=== PATIENT | male | born 1960 | race African-American/Black ===

== ENCOUNTER 2016-11-15 13:49 | Emergency (ER) | payer MEDICARE, OTHER ==
[2016-11-15 11:17] LABS: BASOPHILS 0.3 %; BASOPHILS ABSOLUTE 0.01 10/3/uL (0.0-0.16); EOSINOPHILS 0.3 %; EOSINOPHILS ABSOLUTE 0.01 10/3/uL (0.0-0.53); ER CBC TAT 0 Hrs 09 Mins; HEMATOCRIT 41.7 % (40.0-51.0); HEMOGLOBIN 14.3 g/dL (13.6-17.8); LYMPHOCYTES 34.5 %; LYMPHOCYTES ABSOLUTE 1.13 10/3/uL (0.67-4.30); MEAN CORPUS HGB CONC 34.3 g/dL (32.0-36.0); MEAN CORPUSCULAR HEMOGLOB 28.9 pg (26.0-34.0); MEAN CORPUSCULAR VOLUME 84.2 fL (80-100); MEAN PLATELET VOLUME 9.9 fL (9.2-13.0); MONOCYTES 10.1 %; MONOCYTES ABSOLUTE 0.33 10/3/uL (0.21-1.20); NEUTROPHILS 54.8 %; PLATELET COUNT 192 10/3/uL (150-400); RBC DISTRIBUTION WIDTH 13.6 % (12.0-16.0); RED CELL COUNT 4.95 10/6/uL (4.7-6.1); WHITE BLOOD CELLS 3.3 10/3/uL (4.5-10.5)
[2016-11-15 11:18] LABS: MANUAL DIFF NO %
[2016-11-15 11:31] LABS: BUN (BLOOD UREA NITROGEN) 12 MG/DL (6-23); CALCIUM, SERUM 9.5 MG/DL (8.5-10.4); CHLORIDE, SERUM 104 MMOL/L (96-112); CO2 (CARBON DIOXIDE) 32 MMOL/L (24-34); CREATININE 0.92 MG/DL (0.70-1.30); GFR AFRICAN AMERICAN 108 ML/MIN (>=60); GFR NON AFRICAN AMERICAN 93 ML/MIN (>=60); POTASSIUM, SERUM 4.3 MMOL/L (3.5-5.3); SODIUM, SERUM 142 MMOL/L (135-148)
[2016-11-15 11:32] LABS: GLUCOSE, SERUM 124 MG/DL (60-99)
[2016-11-15 13:40] LABS: INTERNATIONAL NORMAL RATI 1.1 UNITS (-); PARTIAL THROMBO TIME 33.7 SEC (22.5-37.2); PROTIME (NOT ORD) 13.9 SEC (12.0-14.5)
== END 2016-11-15 14:10 | disposition home or self-care (01) ==
LOC: ER 13:49
PROVIDERS: Nurse Practitioner
DX: I82.612 Acute embolism and thrombosis of superficial veins of left upper extremity (principal); I82.622 Acute embolism and thrombosis of deep veins of left upper extremity; F17.200 Nicotine dependence, unspecified, uncomplicated
CPT/HCPCS: 80048; 85025; 85610; 85730; 87040; 93971; 99284; A9270-GY